=== PATIENT | female | born 1985 | race Two or more races ===

== ENCOUNTER 2022-10-06 10:03 | Emergency (ER) | payer OTHER ==
[~2022-10-06] VITALS: Ht 190.5 cm; Wt 106.6 kg
== END 2022-10-06 12:27 | disposition home or self-care (01) ==
LOC: ER 10:03
DX: L30.8 Other specified dermatitis (principal)

== ENCOUNTER 2023-06-09 16:03 | Emergency (ER) | payer OTHER ==
[~2023-06-09] VITALS: Ht 188 cm; Wt 104.3 kg
[2023-06-09] MEDS ORDERED: 0.9 % SODIUM CHLORIDE 1,000 ML IV STA (16:35)
[2023-06-09 17:12] LABS: HEMATOCRIT 41.2 % (39.0-48.0); HEMOGLOBIN 14.1 g/dL (13-16.00); MEAN CELL VOLUME 85.9 fL (80.0-100.00); MEAN CORPUSCULAR HEMOGLOBIN 29.5 pg (27.00-32.0); MEAN CORPUSCULAR HGB CONC 34.3 g/dl (32.0-36.0); PLATELET COUNT 280 K/uL (150-450); RED BLOOD COUNT 4.79 M/uL (4.00-6.00); RED CELL DISTRIBUTION WIDTH 13.2 % (11.5-14.5)
[2023-06-09 17:31] LABS: ALBUMIN 3.9 gm/dL (3.4-5.0); BILIRUBIN TOTAL 0.75 mg/dL (0.3-1.2); CALCIUM 8.9 mg/dL (8.5-10.1); CREATININE SERUM 1.19 mg/dL (0.70-1.30); GFR 68.06; GLOBULINA 3.5 G/DL (2.4-3.5); POTASSIUM 3.95 mEq/L (3.5-5.1); TOTAL PROTEIN 7.4 gm/dL (6.4-8.2)
[2023-06-09 19:22] LABS: COCAINE NEGATIVE (NEGATIVE); METHADONE NEGATIVE (NEGATIVE); OPIATES NEGATIVE (NEGATIVE); THC ( Cannabinoids) NEGATIVE (NEGATIVE)
[2023-06-09] MEDS ORDERED: LORazepam 2 MG/ML VIAL IM ONE (19:45)
== END 2023-06-09 19:56 | disposition home or self-care (01) ==
LOC: ER 16:04 → EDSEX 16:14 → ER 16:14
PROVIDERS: Emergency Medicine
DX: R55 Syncope and collapse (principal); R42 Dizziness and giddiness